=== PATIENT | male | born 1970 | race Caucasian/White ===

== ENCOUNTER → 2021-05-05 | Day surgery (SDC) | payer OTHER ==
[~2021-05-05] VITALS: Ht 167.6 cm; Wt 76.2 kg
[~2021-05-05] MED LIST: ONE DAILY COMP1 EAC1 PO; PRINIVIL20 MG PO
[2021-05-05 07:39] LABS: HCT 39.3 % (42.0-52.0); HGB 14.2 g/dl (13.2-18.0); MCH 32.9 pg (25.0-31.0); MCHC 36.1 g/dL (32.0-36.0); MCV 91.2 fL (78.0-100.0); MPV 9.1 fL (6.0-9.5); RBC 4.31 M/uL (4.70-6.00); RDW 11.5 % (11.5-14.0); WBC 5.3 K/uL (4.0-10.5)
[2021-05-05 07:42] LABS: ALBUMIN 3.6 g/dL (3.4-5.0); BILIRUBIN - TOTAL 0.5 mg/dL (0.2-1.0); BUN/CREAT RATIO (CALC) 13.8 RATIO; CREATININE 0.65 mg/dL (0.67-1.17); GLOBULIN (CALCULATION) 3.5 g/dL; POTASSIUM 3.5 mmol/L (3.5-5.1); TOTAL PROTEIN 7.1 g/dL (6.4-8.2)
== END | disposition home or self-care (01) ==
LOC: FAS 06:54
PROVIDERS: Surgery
DX: R19.7 Diarrhea, unspecified (principal); I10 Essential (primary) hypertension; Z79.899 Other long term (current) drug therapy
CPT/HCPCS: 36415; 80053; J2250; J2704; J7120